=== PATIENT | female | born 1980 | race Caucasian/White ===

== ENCOUNTER 2018-06-01 16:43 | Emergency (ER) | payer BC ==
[2018-06-01] MEDS: NICARDipine HCL 30 MG CAPSULE PO (18:29)
== END 2018-06-01 19:35 | disposition home or self-care (01) ==
LOC: E/R 16:43
DX: I10 Essential (primary) hypertension (principal); R40.2252 Coma scale, best verbal response, oriented, at arrival to emergency department; R40.2142 Coma scale, eyes open, spontaneous, at arrival to emergency department; R40.2362 Coma scale, best motor response, obeys commands, at arrival to emergency department
CPT/HCPCS: 81025; 93005; 99283-25